=== PATIENT | female | born 1990 | race Two or more races ===

== ENCOUNTER 2016-12-21 11:59 | Observation (INO) | payer BC, MEDICAID ==
[~2016-12-21] VITALS: Ht 167.6 cm; Wt 100.0 kg
[2016-12-21 12:57] LABS: BASOPHIL # 0.1 K/uL (0.0-0.2); BASOPHIL % 0.4 %; EOSINOPHIL # 0.2 K/uL (0.0-0.5); EOSINOPHIL % 1.4 %; HEMATOCRIT 36.7 % (33.0-46.0); HEMOGLOBIN 12.7 g/dL (11.0-15.0); IMMATURE GRANULOCYTE # 0.1 K/uL (0.0-0.3); IMMATURE GRANULOCYTE % 0.6 %; LYMPHOCYTE # 2.2 K/uL (0.8-4.0); LYMPHOCYTE % 19.3 %; MCH 30.3 pg (27.0-34.0); MCHC 34.6 gm/dL (32.0-36.5); MCV 87.6 fl (83.0-98.0); MONOCYTE # 0.5 K/uL (0.0-1.0); MONOCYTE % 4.6 %; MPV 10.9 fl (9.4-12.4); NEUTROPHIL # (ANC) 8.4 K/uL (1.8-7.8); NEUTROPHIL % 73.7 %; NRBC % 0 /100WBC (0-0.00); PLATELET COUNT 318 K/uL (150-450); RBC 4.19 M/uL (3.50-5.00); RDW-CV 13.1 % (11.9-14.6); WBC 11.4 K/uL (4.0-11.0)
[2016-12-21 13:13] LABS: ALBUMIN 2.5 gm/dL (3.5-5.0); ALK PHOS 128 IU/L (33-138); ALT 15 IU/L (12-78); AST 11 IU/L (10-40); BLOOD UREA NITROGEN 8 mg/dL (6-24); CALCIUM 8.5 mg/dL (8.5-10.5); CHLORIDE 109 mMol/L (96-110); CO2 18 mMol/L (22-32); CREATININE 0.5 mg/dL (0.5-1.1); ESTIMATED GFR (MDRD EQUATION) > 60; SODIUM 138 mMol/L (135-145); TOTAL BILIRUBIN 0.2 mg/dL (0.0-1.5); TOTAL PROTEIN 6.6 g/dL (6.0-8.4)
[2016-12-21] MEDS ORDERED: PRENATAL 1+1)(P1 TAB PO (15:19)
--- NOTE | 2016-12-22 04:19 | NUR ---
Last VS: T: 98.9 P:82 R: 16 BP: 127/68 Pain ratin Last pain med: none given Medicated at: Effective: FHT: 130's-140's Dilatation: Effacement %: Station: Significant event: PT HAS BEEN HOME ON BEDREST FOR A WEEK. PT RESTED DURING THE NIGHT. OUPUT OF 2400. PT DOES NOT HAVE AN IV. 24 HR UA DONE @ 1210. PT TAKES LOVENOX EVERY NIGHT FOR DVT PROPHYLAXIS?
[2016-12-22 05:05] LABS: BASOPHIL % 0.3 %; EOSINOPHIL # 0.2 K/uL (0.0-0.5); EOSINOPHIL % 1.8 %; HEMATOCRIT 33.9 % (33.0-46.0); HEMOGLOBIN 11.6 g/dL (11.0-15.0); IMMATURE GRANULOCYTE # 0.1 K/uL (0.0-0.3); IMMATURE GRANULOCYTE % 0.6 %; LYMPHOCYTE # 3.4 K/uL (0.8-4.0); LYMPHOCYTE % 29.9 %; MCH 30.4 pg (27.0-34.0); MCHC 34.2 gm/dL (32.0-36.5); MONOCYTE # 0.8 K/uL (0.0-1.0); MONOCYTE % 6.7 %; MPV 10.9 fl (9.4-12.4); NEUTROPHIL % 60.7 %; NRBC % 0 /100WBC (0-0.00); PLATELET COUNT 285 K/uL (150-450); RBC 3.81 M/uL (3.50-5.00); RDW-CV 13.2 % (11.9-14.6); WBC 11.5 K/uL (4.0-11.0)
--- NOTE | 2016-12-22 17:54 | NUR ---
Met briefly with mom and significant other before she discharged. She did not deliver at this time, but is due in the next two - four weeks. Encouraged her to contact her insurance company and find out what information they will need to add baby to the policy once born. Will follow when she returns to deliver and offer supports to her at that time.
== END 2016-12-22 13:50 | disposition disaster alternative care site (69) ==
LOC: GOBS 11:59
PROVIDERS: ADMIT Family Medicine
DX: O14.93 Unspecified pre-eclampsia, third trimester (principal); F10.21 Alcohol dependence, in remission; Z3A.36 36 weeks gestation of pregnancy
CPT/HCPCS: G0378; G0379; G0463

== ENCOUNTER 2016-12-29 11:02 | Inpatient (IN) | payer BC, MEDICAID ==
[~2016-12-29] VITALS: Ht 167.6 cm; Wt 102.2 kg
--- NOTE | ~2016-12-29 | OR ---
PATIENT'S NAME: CHAPIS RM [facility] AGE: 26 [address] ROOM: [address] [address] LOCATION: GOBS ADMIT DATE: 12/30/2016 OR/Procedure Report DISCHARGE DATE: FAMILY PHYSICIAN: Mary Hooks MD ATTENDING PHYSICIAN: Mary oHoks SURGEON: Mary Hooks MD SENIOR SYSTEMS PROGRAMMER: DATE OF PROCEDURE: 12/30/2016 DIAGNOSES: 1. Spontaneous vaginal delivery of a term male. 2. Prostin gel induction. 3. Pitocin augmentation. 4. -induced hypertension. 5. hemorrhage. DESCRIPTION OF PROCEDURE: The patient is a 26-year-old 1, para 0, at 37 and 6/7th weeks, who was brought in secondary to elevated blood pressures. Labs were all stable. Urine had trace of protein. When the patient was comfortable and laying on side, blood pressures were stable, so magnesium sulfate was not needed nor [place]. The patient was gelled I believe 3 times and then Pitocin was began per protocol. When the patient was 3 cm this morning, artificial rupture of membrane was done with clear fluid as a result. The patient then progressed to 4 cm. Epidural was placed. The patient made change to 8 and then complete. With expulsion efforts, baby was delivered in an OA presentation. There was a nuchal cord that was reduced on the perineum and then delivery of the shoulders and body. Umbilical cord was clamped. Cord was cut by the father. Cord blood was obtained. Placenta delivered spontaneously intact. There was a first-degree tear that was repaired with 3- 0 Vicryl in routine fashion. The patient did continue to have boggy uterus, but did firm up with bimanual massage, but then continued to ooze. We will contemplate need for Methergine, but we will watch closely at this time. MARY HOOKS MD DMM/modl /[id number] d: 12/30/166 t: 01/04/17 1517, OPERATIVE SUMMARY
[~2016-12-29 11:02] MED LIST: PRENATAL 1+1)(P1 TAB PO
--- NOTE | 2016-12-31 04:54 | NUR ---
VSS. Fundus frim, midline. SL to left hand. Last Mortin at 0206. on demand using the sheild. Pt independent with cares.
[2016-12-31 05:00] LABS: BASOPHIL % 0.1 %; EOSINOPHIL # 0.1 K/uL (0.0-0.5); EOSINOPHIL % 0.4 %; HEMATOCRIT 27.5 % (33.0-46.0); HEMOGLOBIN 9.7 g/dL (11.0-15.0); IMMATURE GRANULOCYTE # 0.1 K/uL (0.0-0.3); IMMATURE GRANULOCYTE % 0.5 %; LYMPHOCYTE # 3.2 K/uL (0.8-4.0); LYMPHOCYTE % 21.7 %; MCHC 35.3 gm/dL (32.0-36.5); MCV 87.9 fl (83.0-98.0); MONOCYTE # 1.1 K/uL (0.0-1.0); MONOCYTE % 7.5 %; NEUTROPHIL # (ANC) 10.4 K/uL (1.8-7.8); NEUTROPHIL % 69.8 %; NRBC % 0 /100WBC (0-0.00); PLATELET COUNT 259 K/uL (150-450); RBC 3.13 M/uL (3.50-5.00); RDW-CV 13.4 % (11.9-14.6); WBC 14.9 K/uL (4.0-11.0)
--- NOTE | 2016-12-31 09:29 | NUR ---
Last VS: T:98.3 P:87 R: 16 BP: 125/51 Pain ratin Last pain med: MOTRIN Medicated at: Effective: Yes Breasts: , Nipples: Fundus: FIRM Lochia: SMALL Epis/Perineum:1ST DEG LAC W/ REPAIR APPROX. Voiding well: Y Significant event: *.UP AD ESTIVEN, HOME TODAY?
--- NOTE | 2017-01-01 04:54 | NUR ---
Last VS: T:98.6 P:84 R: 20 BP: 126/70 Pain ratin Last pain med: MOTRIN Medicated at: 0445 Effective: YES Breasts: SOFT Nipples: INTACT Fundus:FIRM,MIDLINE ,1 BELOW Lochia: SM,RUBRA Epis/Perineum: APPROX, , Voiding well: Y Significant event: PT DOING WELL. PT PLANS ON DISMISSAL.
[2017-01-01] MEDS ORDERED: LANSINOH7 GM TOP (11:27)
[2017-01-01] MEDS ORDERED: MOTRIN800 MG PO (11:27)
[2017-01-01] MEDS ORDERED: PERCOCET 5-3251 EACH PO (11:28)
--- NOTE | 2017-01-01 15:12 | NUR ---
Met with patient and significant other prior to discharge. Re-introduced myself to them and my role with the CM department. reminded them to contact Medicaid within 30 days of baby's to get Marcelino added to the policy. Provided them with the [employer] Voucher and list of all resources in the [facility]. Discussed signs and symptoms of post depression and provided patient with literature to read. The state they have all the necessary baby items at home. They deny any additional needs at this time. Will discharge with no additional needs.
== END 2017-01-01 12:20 | disposition disaster alternative care site (69) | DRG 774 ==
LOC: GOBS 11:02 → GOBM 11:02 → GOBS 11:03 → GOBM 11:04 → GOBS 12-30 07:34
PROVIDERS: ADMIT Family Medicine
PROC: 3E0P7GC Introduction of Other Therapeutic Substance into Female Reproductive, Via Natural or Artificial Opening (ICD-10-PCS; principal; 2016-12-30)
PROC: 10E0XZZ Delivery of Products of Conception, External Approach (ICD-10-PCS; 2016-12-30)
PROC: 0HQ9XZZ Repair Perineum Skin, External Approach (ICD-10-PCS; 2016-12-30)
DX: O13.4 Gestational [pregnancy-induced] hypertension without significant proteinuria, complicating childbirth (principal); O72.1 Other immediate postpartum hemorrhage; Z3A.37 37 weeks gestation of pregnancy; Z37.0 Single live birth; O69.81X0 Labor and delivery complicated by cord around neck, without compression, not applicable or unspecified; O70.0 First degree perineal laceration during delivery
CPT/HCPCS: J2210; J2405; J2590; J3010; J7120